=== PATIENT | female | born 1950 | race Caucasian/White ===

== ENCOUNTER 2021-04-05 04:23 | Emergency (ER) | payer OTHER, SELFPAY ==
--- NOTE | ~2021-04-05 | XR_ITS ---
XR knee LT 3V DATE: 04/05/2021 06:14 INDICATION: Left knee pain TECHNIQUE: 3 views including crosstable lateral COMPARISON: None FINDINGS: Superior pole patellar enthesopathy. Mild periarticular spurring of the patella. No fracture or dislocation or joint effusion. No periosteal reaction or bone destruction. No radiopaq ue intra-articular loose body or chondrocalcinosis. IMPRESSION: Mild patellofemoral osteoarthritis Reviewed, dictated and finalized at location [facility].
--- NOTE | ~2021-04-05 | CT_ITS ---
EXAMINATION: CT abdomen pelvis w con DATE: 04/05/2021 05:57 INDICATION: Bilateral lower quadrant abdominal pain TECHNIQUE: Computed tomography (CT) of the abdomen and pelvis was performed with 100 cc Omnipaque 350 intravenous contrast. Automated exposure control and iterative reconstruction technique were employe d. Exam dose: 778.94 mGy-cm total exam DLP. COMPARISON: None. FINDINGS: There is minimal dependent atelectasis in the lower lobes. Mild cardiac megaly. No pericard ial or pleural effusion. Small sliding hiatal hernia. Diffuse hepatic steatosis. No hepatic space-occupying mass lesion is detected. The gallbladder is distended but no gallbladder wall thickening or pericholecystic fat stranding or f luid collection is noted. No bile duct or pancreatic duct dilatation. No pancreatic mass lesion or ca lcification. Splenic size is within normal range. Normal morphology of the adrenal glands. No renal mass lesion or urinary tract calculus or hydroureteronephrosis. The uterus and urinary bladder, uterus and adnexal areas are unremarkable. There is calcification of the abdominal aorta and iliac and femoral arteries but no aneurysm. No intraperitoneal or retroperitoneal or pelvic mass lesion or adenopathy or ascites. Mild sigmoid colon diverticulosis; no CT evidence of diverticulitis. No evidence of appendicitis. No bowel obstruction, bowel wall thickening, pneumatosis or intraperitoneal free air is detected. Degenerative changes of the thoracic and lumbar spine. No suspicious osteolytic or osteoblastic lesio ns are noted. IMPRESSION: Hepatic steatosis Small sliding hiatal hernia Sigmoid diverticulosis; no CT evidence of diverticulitis Reviewed, dictated and finalized at [facility]. Reviewed, dictated and finalized at location A.
--- NOTE | ~2021-04-05 | XR_ITS ---
XR foot LT min 3V DATE: 04/05/2021 06:14 INDICATION: Left foot pain TECHNIQUE: 4 views COMPARISON: None FINDINGS: Diffuse osteopenia. Mild osteoarthritis at the first metatarsophalangeal joint, joint space narrowing. Mild plantar and posterior calcaneal enthesopathy. No fracture or dislocation, periosteal reaction or bone destruction. IMPRESSION: Osteopenia Mild osteoarthritic arthritis at first metatarsophalangeal joint Calcaneal enthesopathy Reviewed, dictated and finalized at location A.
--- NOTE | ~2021-04-05 | XR_ITS ---
XR foot RT min 3V DATE: 04/05/2021 06:15 INDICATION: Right foot pain TECHNIQUE: 4 views COMPARISON: None FINDINGS: There is diffuse osteopenia. Os tibiale externum, normal variant. Mild osteoarthritis at the first metatarsophalangeal joint. Distal tibial screw. Mild plantar and moderate posterior calcaneal enthesopathy. No recent fracture, dislocation, periosteal reaction or bone destruction is detected. IMPRESSION: Diffuse osteopenia Calcaneal enthesopathy Mild osteoarthritis at first metatarsophalangeal joint Reviewed, dictated and finalized at location A.
--- NOTE | ~2021-04-05 | XR_ITS ---
XR knee RT 3V DATE: 04/05/2021 06:15 INDICATION: Right knee pain TECHNIQUE: 3 views including crosstable lateral COMPARISON: None FINDINGS: There is minimal periarticular spurring of the patella. No fracture or dislocation or joint effusion, periosteal reaction or bone destruction, radiopaque int ra-articular loose body or chondrocalcinosis. Joint spaces appear relatively preserved. IMPRESSION: Mild patellofemoral osteoarthritis Reviewed, dictated and finalized at location A.
--- NOTE | ~2021-04-05 | US_ITS ---
US venous doppler [facility] DATE: 04/05/2021 08:03 INDICATION: Pain and swelling of lower extremities for 3 weeks. Elevated d-dimer. TECHNIQUE: Real-time and color flow imaging and Doppler analysis. COMPARISON: None FINDINGS: The greater saphenous veins are patent. There is spontaneous and phasic flow and normal augmentation and color flow signal and normal kari elba of the deep veins of both lower extremities. IMPRESSION: No evidence of deep venous thrombosis of the lower extremities Reviewed, dictated and finalized at [facility]. Reviewed, dictated and finalized at location A.
[2021-04-05 04:30] VITALS: BP 154/72; PULSE 78; RESP 20; TEMP 36.6; O2SAT 97
[2021-04-05] MEDS: KETOROLAC 30 MG/ML VIAL (*BKC) 15 MG IV PUSH (05:03)
[2021-04-05 05:06] LABS: Basophils Absolute Auto 0.1 K/mm3 (0.0-0.1); Basophils Percent Auto 0.4 % (0.2-1.2); Eosinophils Absolute Auto 0.3 K/mm3 (0-0.3); Eosinophils Percent Auto 1.3 % (0-4.4); Hematocrit 43.7 % (37.0-47.0); Hemoglobin 15.2 g/dL (12.0-15.0); Immature Granulocyte Percent A 1.7 % (0-0.5); Lymphocytes Absolute Auto 2.36 K/mm3 (0.9-3.2); Lymphocytes Percent Auto 10.2 % (18.3-44.2); Mean Corpuscular HGB Conc 34.8 g/dl (32-36); Mean Corpuscular Hemoglobin 29.2 pg (26-34); Mean Platelet Volume 10.7 fl (7.4-10.4); Monocytes Absolute Auto 1.8 K/mm3 (0.1-0.6); Monocytes Percent Auto 7.7 % (2.6-8.5); Neutrophils Absolute Auto 18.2 K/mm3 (1.3-6.7); Neutrophils Percent Auto 78.7 % (45.5-73.1); Platelet Count Result 437 k/mm3 (150-375); White Blood Count 23.1 K/mm3 (4.5-10.0)
[2021-04-05 05:20] LABS: Lactic Acid Reflex 2.5 mmol/L (0.7-2.1)
--- NOTE | 2021-04-05 05:21 | ED.GENADULT ---
HPI - General Adult General Chief complaint: Extremity Problem,Nontraumatic <Abdifatah Serrato MD - Last Filed: 04/05/21 06:44> Stated complaint: arthritis/gout <Abdifatah Serrato MD - Last Filed: 04/05/21 06:44> Time Seen by Provider: 04/05/21 04:30 <Abdifatah Serrato MD - Last Filed: 04/05/21 06:44> History of Present Illness HPI narrative: Patient is a 71-year-old female presents the emergency department with chief complaint of legs hurting and abdominal pain. The patient states for the last week she has been having aching in her feet and calves <Abdifatah Serrato MD - Last Filed: 04/05/21 06:44> Related Data Home medications: Home Medications Medication Instructions Recorded Confirmed atenolol-chlorthalidone 1 tablet PO DAILY 08/16/19 08/19/19 levothyroxine [Synthroid] 100 mcg PO DAILY 08/16/19 08/16/19 cetirizine [Zyrtec] 5 mg PO DAILY PRN 08/19/19 08/19/19 allopurinol DAILY 04/05/21 diazepam PRN 04/05/21 hydrocodone-acetaminophen See Rx Instructions .ROUTE 04/05/21 .COMPLEX PRN <Abdifatah Serrato MD - Last Filed: 04/05/21 06:44> Allergies/adverse reactions: Allergies Allergy/AdvReac Type Severity Reaction Status Date / Time Sulfa (Sulfonamide Allergy Unknown Unknown Verified 04/05/21 08:16 Antibiotics) bandaids Allergy Mild Rash Uncoded 04/05/21 08:16 <Abdifatah Serrato MD - Last Filed: 04/05/21 06:44> [facility] Past Medical History Medical History: Medical History (Updated 04/05/21 @ 10:49 by Wolf Rodriguez MD) Hypertension Hypothyroid Overweight <Abdifatah Serrato MD - Last Filed: 04/05/21 06:44> Social History Social History: Social History Gender identity (if verbalized by the patient): Female <Abdifatah Serrato MD - Last Filed: 04/05/21 06:44> Exam Narrative: Exam Narrative: GENERAL: Well-appearing, well-nourished, and in no acute distress. HEAD: Normocephalic, atraumatic. EYES: PERRL and EOMI. ENT: Mucous membranes moist. CHEST: Clear to auscultation. No respiratory distress. HEART: Regular rate and rhythm. Normal peripheral pulses. ABDOMEN: Soft, tender palpation left lower quadrant without guarding, nondistended. EXTREMITIES: Normal range of motion. No edema. SKIN: Warm, dry, no rash. NEURO: Alert and oriented x3. <Wolf Rodriguez MD - Last Filed: 04/05/21 10:49> Course Course Emergency Course: The patient was found to be hypokalemic and the patient was given 20 mEq of IV potassium. CT scan of the abdomen pelvis is currently pending due to the patient still being in the department at this time a venous duplex was also ordered as she has an elevated D-dimer. <Abdifatah Serrato MD - Last Filed: 04/05/21 06:44> Reevaluation(s) Reevaluation #1: I discussed the results with the patient as well as the diagnosis and treatment plan. Discussed admission the hospital and patient verbalized understanding. Contacted the hospitalist service is excepted the patient. After orders are written patient decided she no longer want to stay in the hospital and was wanting to leave AGAINST MEDICAL ADVICE despite being educated on the risks of , permanent disability, and deterioration of condition. <Wolf Rodriguez MD - Last Filed: 04/05/21 10:49> Date: 04/05/21 <Wolf Rodriguez MD - Last Filed: 04/05/21 10:49> Time: 10:48 <Wolf Rodriguez MD - Last Filed: 04/05/21 10:49> Vital Signs Vital signs: Vital Signs Temperature 98 F 04/05/21 04:30 Pulse Rate 78 04/05/21 04:30 Respiratory Rate 20 04/05/21 04:30 Blood Pressure 154/72 H 04/05/21 04:30 Pulse Oximetry 97 04/05/21 04:30 Temperature 98 F 04/05/21 04:30 Pulse Rate 66 04/05/21 09:58 Respiratory Rate 16 04/05/21 09:58 Blood Pressure 103/70 04/05/21 09:58 Pulse Oximetry 95 04/05/21 09:58
[2021-04-05 05:28] LABS: NT Pro B Type Natriuretic Pept 532 pg/mL (5-100)
[2021-04-05 05:31] LABS: Alanine Aminotransferase 24 U/L (4-35); Albumin Level 3.4 g/dL (3.5-5.1); Alkaline Phosphatase 147 U/L (38-126); Anion Gap 10 mmol/L (8-16); Aspartate Amino Transferase 71 U/L (14-36); Bilirubin,Total 1.9 mg/dL (0.2-1.3); Blood Urea Nitrogen 20 mg/dL (7-17); Calcium 9.9 mg/dL (8.4-10.2); Carbon Dioxide 34 mmol/L (22-30); Chloride 87 mmol/L (98-107); Estimated CRCL calculation 74 ml/min; Estimated Glomerular Filt Rate > 60; Glucose 148 mg/dL (65-105); Magnesium 1.9 mg/dL (1.6-2.3); Potassium 2.6 mmol/L (3.4-5.0); Sodium 131 mmol/L (137-145); Uric Acid 4.2 mg/dL (2.5-7.5)
[2021-04-05 05:41] LABS: INR 1.7; Prothrombin Time 19.7 Seconds (11.1-14.7)
[2021-04-05 05:42] LABS: Partial Thromboplastin Time 48.5 SECONDS (22.3-36.8)
[2021-04-05 05:44] LABS: D Dimer 1.12 ug/mL (<0.48)
[2021-04-05] MEDS: SODIUM CHLORIDE 0.9% IV 1,000 ML 999 ML IV CONT (06:20)
[2021-04-05 06:21] VITALS: BP 122/59; PULSE 74; RESP 20; O2SAT 95
[2021-04-05 07:47] LABS: Add Urine Microscopic? YES; Appearance Urine Clear (Clear); Bilirubin Urine Negative (Negative); Blood Urine Negative (Negative); Color Urine Amber (Yellow); Glucose Urine UA Negative (Negative); Ketones Urine Negative (Negative); Leukocyte Esterase Ur Negative LEU/UL (Negative); Mucus Urine Rare /lpf; Nitrate Urine Negative (Negative); Protein Urine Negative (Negative); Squamous Epithelial Cell Urine Few /hpf (Few)
[2021-04-05 07:51] LABS: Specific Grav Ur > 1.060 (1.001-1.035)
[2021-04-05 08:01] LABS: Reflex Lactic Acid Yes or No Add Lactic
[2021-04-05 08:15] VITALS: BP 112/67; PULSE 69; RESP 16; O2SAT 97
[2021-04-05 08:37] LABS: Lactic Acid 2.2 mmol/L (0.7-2.1)
[2021-04-05 08:49] LABS: Creatine Kinase < 20 U/L (30-135)
[2021-04-05 09:58] VITALS: BP 103/70; PULSE 66; RESP 16; O2SAT 95
--- NOTE | 2021-04-05 10:46 | PC.NURSE ---
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 forms signed by pt. iv d/c intact.
== END 2021-04-05 11:30 | disposition left against medical advice (07) ==
PROVIDERS: Emergency Medicine; Emergency Provider Emergency Medicine; PCP Family Medicine
DX: E87.6 Hypokalemia (principal); D72.829 Elevated white blood cell count, unspecified; I10 Essential (primary) hypertension; E03.9 Hypothyroidism, unspecified; K76.0 Fatty (change of) liver, not elsewhere classified; K44.9 Diaphragmatic hernia without obstruction or gangrene; K57.30 Diverticulosis of large intestine without perforation or abscess without bleeding; M17.0 Bilateral primary osteoarthritis of knee; M85.871 Other specified disorders of bone density and structure, right ankle and foot; M77.31 Calcaneal spur, right foot; M77.32 Calcaneal spur, left foot; M19.071 Primary osteoarthritis, right ankle and foot; M19.072 Primary osteoarthritis, left ankle and foot
CPT/HCPCS: 36415; 73562; 73630; 74177; 80053; 81001; 82550; 83605; 83735; 83880; 84550; 85025; 85380; 85610; 85730; 87040; 93970; 96361; 96365; 96366; 96375; 99284; J1885; J3480; J7030; J7060; Q9967